=== PATIENT | female | born 1955 | race Caucasian/White ===

== ENCOUNTER 2021-08-19 11:54 | Outpatient (CLI) | payer MEDICARE, BC, SELFPAY ==
--- NOTE | 2021-08-19 12:45 | USCV_ITS ---
Shahana Toledo Age: 66 Gender: F : 1955 Exam Date: 08/19/2021 12:24 Ordering Phys: Zana Brandon MD ([email or web address]) Technologist: ELAINE Exam Location: [facility] – [place] Indication: HISTORY: LEFT thigh varicosities x 4 yrs. No hx DVT PROCEDURES: The venous duplex Doppler examination of both lower extremities was performed in the standard fashion for an insufficiency study with 45 degree reverse Trendelenberg dependency. The following venous structures were evaluated: common femoral vein, profunda vein, proximal portion of the greater saphenous vein, superficial femoral vein, and the popliteal vein. In addition, the posterior tibial veins were evaluated. In addition, the peroneal veins were evaluated. Bilaterally, the common femoral, superficial femoral, profunda femoral, popliteal, posterior tibial, greater saphenous veins, and the peroneal trunk were identified and interrogated in the standard fashion. These veins were found to be easily compressible with spontaneous blood flow. No evidence of thrombus noted. Serial compression, augmentation maneuvers, and spectral Doppler flow evaluation were performed which were normal. There is significant reflux at the LEFT saphenofemoral junction (2.04 seconds) with the Valsalva maneuver, while the remainder of the deep and superficial venous compartments demonstrate no significant reflux. FINDINGS: The veins were found to be easily compressible with spontaneous blood flow. Non pulsatile flow pattern. Significant venous reflexes were noted in the right common femoral and at the left saphenofemoral junction CONCLUSIONS 1. No evidence of DVT in the above-mentioned identifiable veins. 2. Significant venous reflux of greater than 1000 ms was noted in the right common femoral vein 3. Significant venous reflux of greater than 500 ms was noted at the left saphenofemoral junction. 4. No other significant refluxes were noted. 5. The venous dimensions and the depth from the surfaces are as mentioned above Dr Maverick Case MD [facility] (Electronically Signed) Final Date: 20 August 2021 12:48 S
== END 2021-08-19 11:55 | disposition home or self-care (01) ==
LOC: RAD 12:02
PROVIDERS: PCP Pediatrics; Visit Provider Internal Medicine Cardiovascular Disease
DX: I83.892 Varicose veins of left lower extremity with other complications (principal); I83.891 Varicose veins of right lower extremity with other complications; I87.2 Venous insufficiency (chronic) (peripheral)
CPT/HCPCS: 93970

== ENCOUNTER → 2021-08-27 10:26 | Outpatient (BNVA) | payer BC, SELFPAY | PROVIDERS: PCP Pediatrics; Referring Provider Family Medicine; Visit Provider Specialist | DX: M16.11 Unilateral primary osteoarthritis, right hip (principal) | CPT/HCPCS: 73502 ==

== ENCOUNTER 2021-09-02 06:00 | Outpatient (RCR) | payer BC, SELFPAY | END 2021-09-08 23:59 | disposition home or self-care (01) | LOC: MPT 06:00 | PROVIDERS: PCP Pediatrics; Referring Provider Specialist; Visit Provider Specialist | DX: M25.551 Pain in right hip (principal); M54.50 Low back pain, unspecified | CPT/HCPCS: 97110; 97162; G0283 ==

== ENCOUNTER → 2021-09-03 08:28 | Outpatient (BNVA) | payer BC, SELFPAY | PROVIDERS: PCP Pediatrics; Referring Provider Family Medicine; Visit Provider Specialist | DX: M25.572 Pain in left ankle and joints of left foot (principal); M25.561 Pain in right knee; M76.51 Patellar tendinitis, right knee | CPT/HCPCS: 73560; 73565; 73610 ==

== ENCOUNTER 2021-09-03 10:24 | Outpatient (CLI) | payer BC, SELFPAY | END 2021-09-03 10:25 | disposition home or self-care (01) | LOC: SPT 10:25 | PROVIDERS: PCP Pediatrics; Visit Provider Podiatrist Foot & Ankle Surgery | DX: Z46.89 Encounter for fitting and adjustment of other specified devices (principal); M72.2 Plantar fascial fibromatosis; M76.72 Peroneal tendinitis, left leg | CPT/HCPCS: 97760; L4397 ==

== ENCOUNTER 2021-09-09 06:00 | Outpatient (RCR) | payer BC, SELFPAY | END 2021-10-06 23:59 | disposition home or self-care (01) | LOC: MPT 06:00 | PROVIDERS: PCP Pediatrics; Visit Provider Specialist | DX: M25.551 Pain in right hip (principal); M54.59 Other low back pain | CPT/HCPCS: 97110; G0283 ==

== ENCOUNTER 2021-10-07 06:00 | Outpatient (RCR) | payer BC, SELFPAY | END 2021-11-06 23:59 | disposition home or self-care (01) | LOC: MPT 06:00 | PROVIDERS: PCP Pediatrics; Referring Provider Podiatrist Foot & Ankle Surgery; Visit Provider Podiatrist Foot & Ankle Surgery | DX: M76.70 Peroneal tendinitis, unspecified leg (principal); M72.2 Plantar fascial fibromatosis | CPT/HCPCS: 97032; 97110 ==

== ENCOUNTER 2021-11-07 06:00 | Outpatient (RCR) | payer BC, SELFPAY | END 2021-12-06 23:59 | disposition home or self-care (01) | LOC: MPT 06:00 | PROVIDERS: PCP Pediatrics; Referring Provider Podiatrist Foot & Ankle Surgery; Visit Provider Podiatrist Foot & Ankle Surgery | DX: M76.70 Peroneal tendinitis, unspecified leg (principal); M72.2 Plantar fascial fibromatosis | CPT/HCPCS: 97110 ==

== ENCOUNTER 2022-05-26 15:08 | Outpatient (CLI) | payer MEDICARE, SELFPAY | END 2022-05-26 15:09 | disposition home or self-care (01) | LOC: SPT 15:12 | PROVIDERS: PCP Pediatrics; Visit Provider Podiatrist Foot & Ankle Surgery | DX: Z46.89 Encounter for fitting and adjustment of other specified devices (principal); M72.2 Plantar fascial fibromatosis; M76.70 Peroneal tendinitis, unspecified leg | CPT/HCPCS: 97760; L3030 ==

== ENCOUNTER → 2022-09-23 11:25 | Outpatient (BNVA) | payer MEDICARE, SELFPAY | PROVIDERS: PCP Pediatrics; Visit Provider Podiatrist Foot & Ankle Surgery | DX: M76.72 Peroneal tendinitis, left leg (principal); M72.2 Plantar fascial fibromatosis | CPT/HCPCS: 99213 ==